=== PATIENT | male | born 1970 | race Caucasian/White ===

== ENCOUNTER 2017-04-17 08:17 | Emergency (ER) | payer OTHER, BC ==
[2017-04-17] MEDS: MORPHINE 4 MG/ML 1ML VIAL (J2270) IV (09:29)
[2017-04-17 09:59] LABS: BASO # 0.1 10^3/uL (0.0-0.2); BASO % 0.5 % (0.0-1.0); EOS # 0.1 10^3/uL (0.0-0.50); EOS % 0.8 % (0.0-3.0); HEMATOCRIT 45.9 % (42.0-52.0); HEMOGLOBIN 16.8 g/dl (14.0-18.0); IMMATURE GRANULOCYTE % 0.5 % (0-3.0); LYMPH # 2.6 10^3/uL (1.5-4.5); MEAN CORPUSCULAR HEMOGLOBIN 31.9 pg (27.0-33.0); MEAN CORPUSCULAR VOLUME 87.3 fl (80.0-96.0); MONO # 1.1 10^3/uL (0.0-0.8); MONO % 7.1 % (0.0-5.0); NEUTROPHILS # 11.4 10^3/uL (1.8-7.7); NEUTROPHILS % 74.1 % (36.0-66.0); PLATELET COUNT, AUTOMATED 248 10^3/uL (150-450); RED BLOOD COUNT 5.26 10^6/uL (4.30-6.10); RED CELL DISTRIBUTION WIDTH 12.1 % (11.5-14.5); WHITE BLOOD COUNT 15.3 10^3/uL (4.0-10.0)
[2017-04-17 10:10] LABS: MEAN CORPUSCULAR HGB CONC 36.6 g/dl (32.0-36.5)
[2017-04-17 10:13] LABS: ANION GAP 7 MEQ/L (8-16); BLOOD UREA NITROGEN 14 MG/DL (7-18); CARBON DIOXIDE LEVEL 27 MEQ/L (21-32); CHLORIDE LEVEL 104 MEQ/L (98-107); CREATININE FOR GFR 0.96 MG/DL (0.70-1.30); GLOMERULAR FILTRATION RATE > 60.0 (>60); GLUCOSE, FASTING 105 MG/DL (70-100); POTASSIUM SERUM 3.7 MEQ/L (3.5-5.1); SODIUM LEVEL 138 MEQ/L (136-145)
[2017-04-17] MEDS: CLINDAMYCIN 600 MG in APPROPRIATE DILUENT 1 EA IV (11:06)
[2017-04-17] MEDS: NORCO, ANEXSIA 5/325MG TABLET (HYDROcodone/ACETAMINOPHEN) PO (12:32)
== END 2017-04-17 14:00 | disposition home or self-care (01) ==
LOC: M ED 08:17
DX: H60.93 Unspecified otitis externa, bilateral (principal); F17.210 Nicotine dependence, cigarettes, uncomplicated
CPT/HCPCS: J2270

== ENCOUNTER → 2017-10-05 | Outpatient (REF) | payer OTHER, SELFPAY ==
[2017-10-05 16:46] LABS: INR 0.88
[2017-10-06 10:02] LABS: HEPATITIS B SURFACE ANTIBODY NEGATIVE (POSITIVE)
[2017-10-06 10:09] LABS: ALPHA FETOPROTEIN TUMOR QUANT < 1.3 NG/ML (<8.1)
[2017-10-11 14:25] LABS: ALPHA 2-MACROGLOBULIN 298 mg/dL (110-276); ALT 53 IU/L (0-55); APOLIPOPROTEIN A-1 123 mg/dL (101-178); FIBROSIS SCORE 0.44 (0.00-0.21); FIBROSIS STAGE F1-F2 (.); GGT 14 IU/L (0-65); HAPTOGLOBIN 63 mg/dL (34-200); HEPATITIS A IgG TOTAL Positive (Negative); HEPATITIS B CORE ANTIBODY IGG Negative (Negative); HEPATITIS C QUANTITATION 6093410 IU/mL (.); HEPATITIS C VIRUS GENOTYPE 3 (.); NECROINFLAM SCORE 0.36 (0.00-0.17); NECROINFLAMM GRADE A1-Minimal activity (.); TOTAL BILIRUBIN 0.5 mg/dL (0.0-1.2)
== END ==
LOC: M SFHCPLAZ 12:42
DX: B18.2 Chronic viral hepatitis C (principal)
CPT/HCPCS: 84460

== ENCOUNTER 2018-03-19 11:56 | Emergency (ER) | payer OTHER ==
[~2018-03-19] VITALS: Ht 177.8 cm; Wt 75.0 kg
[~2018-03-19 11:56] MED LIST: CIPR-249 PO; CIPRHCOTIC AU; NORCOTAB PO; PRED20TA PO
[2018-03-19 11:57] VITALS: BP 149/92
[2018-03-19] MEDS ORDERED: GABA800T4 PO (12:03)
== END 2018-03-19 14:58 | disposition left against medical advice (07) ==
LOC: M ED 11:56
DX: Z53.21 Procedure and treatment not carried out due to patient leaving prior to being seen by health care provider (principal)

== ENCOUNTER → 2019-03-22 | Outpatient (REF) | payer OTHER, MEDICAID ==
[~2019-03-22] MED LIST changes: +GABA800T4 PO; +HYDR-3715 PO; -NORCOTAB PO
[2019-03-22 17:36] LABS: FREE T4 1.04 NG/DL (0.76-1.46); THYROID STIMULATING HORMONE 0.923 uIU/ML (0.358-3.740)
[2019-03-22 17:37] LABS: BASO % 0.4 % (0.0-1.0); EOS # 0.3 10^3/uL (0.0-0.5); EOS % 3.1 % (0.0-3.0); HEMATOCRIT 41.4 % (42.0-52.0); HEMOGLOBIN 14.8 g/dl (13.5-17.5); LYMPH # 3.1 10^3/uL (1.5-5.0); LYMPH % 33.3 % (24.0-44.0); MEAN CORPUSCULAR HEMOGLOBIN 31.8 pg (27.0-33.0); MEAN CORPUSCULAR HGB CONC 35.7 g/dl (32.0-36.5); MEAN CORPUSCULAR VOLUME 88.8 fl (80.0-96.0); MONO # 0.7 10^3/uL (0.0-0.8); MONO % 7.2 % (0.0-5.0); NEUTROPHILS # 5.2 10^3/uL (1.5-8.5); NEUTROPHILS % 55.8 % (36.0-66.0); PLATELET COUNT, AUTOMATED 278 10^3/uL (150-450); RED BLOOD COUNT 4.66 10^6/uL (4.30-6.10); WHITE BLOOD COUNT 9.3 10^3/uL (4.0-10.0)
== END ==
LOC: M LAB REF 16:38
PROVIDERS: ATTEND Nurse Practitioner Family
DX: H70.13 Chronic mastoiditis, bilateral (principal); F17.200 Nicotine dependence, unspecified, uncomplicated; Z13.9 Encounter for screening, unspecified